=== PATIENT | female | born 1990 | race African-American/Black ===

== ENCOUNTER 2023-11-28 21:56 | Emergency (ER) | payer BC ==
[~2023-11-28] VITALS: Ht 152.4 cm; Wt 79.8 kg
[2023-11-29] MEDS ORDERED: TDAP [DIPH/PERTUSSIS/TET] 0.5 ML VIAL IM ONE (00:14)
[2023-11-29] MEDS: TDAP [DIPH/PERTUSSIS/TET] 0.5 ML VIAL IM ONE (00:18)
[2023-11-29 00:19] VITALS: BP 122/67; TEMP 98; O2SAT 99
== END 2023-11-29 00:19 | disposition home or self-care (01) ==
LOC: ER 22:01
DX: S61.412A Laceration without foreign body of left hand, initial encounter (principal); W26.8XXA Contact with other sharp object(s), not elsewhere classified, initial encounter; Y93.89 Activity, other specified; Y92.098 Other place in other non-institutional residence as the place of occurrence of the external cause; Y99.8 Other external cause status
CPT/HCPCS: 90715